=== PATIENT | female | born 1995 | race Caucasian/White ===

== ENCOUNTER 2022-01-13 04:18 | Inpatient (IN) ==
[2022-01-13] MEDS ORDERED: CARBOPROST TROMETHAMINE 250 MCG/ML AMP IM PRN (04:30)
[2022-01-13] MEDS ORDERED: TRANEXAMIC ACID 1,000 MG in SODIUM CHLORIDE 0.9% 100 ML IV PRN (04:30)
[2022-01-13] MEDS ORDERED: LACTATED RINGERS 500 ML IV PRN (04:30)
[2022-01-13] MEDS ORDERED: METHYLERGONOVINE 0.2 MG/1 ML AMP IM PRN (04:30)
[2022-01-13] MEDS ORDERED: ONDANSETRON 4 MG/2 ML VIAL IV PRN ×2 (04:30→11:24)
[2022-01-13] MEDS ORDERED: OXYTOCIN/LR 20 UNIT/1,000 ML BAG IV ONE ×2 (04:30→11:24)
[2022-01-13] MEDS ORDERED: miSOPROStoL 200 MCG TABLET RECTAL PRN (04:30)
[2022-01-13] MEDS ORDERED: MEPERIDINE 50 MG/1 ML VIAL IV PRN (04:30)
[2022-01-13] MEDS ORDERED: LACTATED RINGERS 1,000 ML IV SCH (04:30)
[2022-01-13] MEDS ORDERED: ePHEDrine 50 MG/ML VIAL IV PRN (04:32)
[2022-01-13] MEDS ORDERED: CITRIC ACID/SODIUM CITRATE 30 ML UDCUP PO ONE (04:32)
[2022-01-13] MEDS ORDERED: diphenhydrAMINE 50 MG/1 ML VIAL IV PRN ×2 (04:32)
[2022-01-13] MEDS ORDERED: LACTATED RINGERS 1,000 ML IV ONE (04:32)
[2022-01-13] MEDS ORDERED: FAMOTIDINE 20 MG/2 ML VIAL IV ONE (04:32)
[2022-01-13] MEDS ORDERED: hydrOXYzine HCL 25 MG/1 ML VIAL IM PRN (04:32)
[2022-01-13 04:49] LABS: Basophils % 0.2 % (0.0-0.8); Eosinophils % 0.1 % (0.00-10.9); Hematocrit 29.1 VOL% (35.7-47.0); Hemoglobin 8.9 GM/DL (12.0-16.0); Immature Granulocytes % 0.6 %; Immature Granulocytes Absolute 0.06 #; Lymphocytes # 2.1 10*3/uL (1.4-4.0); Lymphocytes % 21.6 % (21.3-54.2); Mean Corpuscular HGB Conc 30.6 GM/DL (32-36); Mean Platelet Volume 10.9 FL (9.6-12.0); Monocytes # 0.9 10*3/uL (0.11-0.8); Monocytes % 8.7 % (1.7-12.7); Neutrophils % 68.8 % (38.7-73.9); Platelet Count 211 T/CUMM (130-400); Red Blood Count 3.55 MC/CUMM (3.8-5.5); Red Cell Distribution Width 13.8 % (9.3-17.3); White Blood Count 9.7 T/CUMM (4-12)
[2022-01-13] MEDS ORDERED: PROMETHAZINE 25 MG/1 ML VIAL IM ONE (05:00)
[2022-01-13] MEDS ORDERED: fentaNYL 2 MCG/ROPIV 0.2% EPID 100 ML EPIDURAL SCH (05:00)
[2022-01-13 05:11] LABS: Albumin 2.7 G/DL (3.4-5.0); Bilirubin,Total 0.5 MG/DL (0.20-1.00); Calcium 9.3 MG/DL (8.5-10.1); Osmolality,Calculated 269.8 MOS/KG (273-304); Total Protein 6.6 G/DL (6.4-8.2)
[2022-01-13] MEDS ORDERED: OXYTOCIN/LR 20 UNIT/1,000 ML BAG IV SCH (05:30)
[2022-01-13 06:14] LABS: Bacteria,Urine Occasional /HPF (Few); Mucus,Urine Few /LPF (Occasional)
[2022-01-13 06:15] LABS: Bilirubin,Urine Negative (Negative); Blood, Urine Negative (Negative); Glucose,Urine (UA) Negative (Negative); Ketones,Urine 15 mg/dL (Negative); Nitrite,Urine Negative (Negative); Protein,Urine 30 mg/dL (Negative); Urine Appearance Clear (Clear); Urine Color Yellow (Yellow); Urine Specific Gravity >= 1.030 (1.001-1.035); Urine pH 6.5 (4.5-8.0)
[2022-01-13] MEDS ORDERED: miSOPROStoL 200 MCG TABLET ONE (08:49)
[2022-01-13] MEDS ORDERED: SODIUM CHLORIDE 0.9% 0 ML IV ONE (08:49)
[2022-01-13] MEDS ORDERED: TRANEXAMIC ACID 1,000 MG/10 ML VIAL ONE (08:49)
[2022-01-13] MEDS ORDERED: METHYLERGONOVINE 0.2 MG/1 ML AMP ONE (08:50)
[2022-01-13] MEDS ORDERED: CARBOPROST TROMETHAMINE 250 MCG/ML AMP IM ONE (08:50)
[2022-01-13 09:12] LABS: Cord Venous Blood HCO3 24.1 MMOL/L; Cord Venous Blood PCO2 41.4 MMHG; Cord Venous Blood PO2 35.4
[2022-01-13] MEDS ORDERED: IBUPROFEN 800 MG TABLET PO PRN (11:24)
[2022-01-13] MEDS ORDERED: ACETAMINOPHEN 325 MG TABLET PO PRN (11:24)
[2022-01-13] MEDS ORDERED: oxyCODONE/ACETAMINOPHEN 5-325 MG TABLET PO PRN ×2 (11:24)
[2022-01-13] MEDS ORDERED: HYDROCORTISONE 2.5% RECTAL CREAM 30 GM TUBE TOP PRN (11:24)
[2022-01-13] MEDS ORDERED: WITCH HAZEL PADS 100/JAR TOP PRN (11:24)
[2022-01-13] MEDS ORDERED: MEASLES/MUMPS/RUBELLA VACCINE 0.5 ML VIAL SUBCUT ONE (11:24)
[2022-01-13] MEDS ORDERED: LANOLIN 50% CREAM 0.3 OZ TUBE TOP PRN (11:24)
[2022-01-13] MEDS ORDERED: BENZOCAINE 20%/MENTHOL 0.5% SPRAY 56 GM CAN TOP PRN (11:24)
[2022-01-13] MEDS ORDERED: DIPH/TET/ACEL PERT BOOSTER VACCINE 0.5 ML VIAL IM ONE (11:24)
[2022-01-13] MEDS ORDERED: BISACODYL 10 MG SUPP RECTAL PRN (11:24)
[2022-01-13] MEDS ORDERED: RHO(D) IMMUNE GLOBULIN 300 MCG SYRINGE IM ONE (11:24)
[2022-01-13] MEDS: DOCUSATE SODIUM 100 MG CAPSULE PO SCH (21:25)
[2022-01-14 05:10] LABS: Basophils % 0.4 % (0.0-0.8); Eosinophils # 0.1 10*3/uL (0.0-0.87); Eosinophils % 1.1 % (0.00-10.9); Hematocrit 27.9 VOL% (35.7-47.0); Hemoglobin 8.1 GM/DL (12.0-16.0); Immature Granulocytes % 0.6 %; Immature Granulocytes Absolute 0.06 #; Lymphocytes # 2.2 10*3/uL (1.4-4.0); Lymphocytes % 21.5 % (21.3-54.2); Mean Platelet Volume 11.4 FL (9.6-12.0); Monocytes % 9.5 % (1.7-12.7); Neutrophils % 66.9 % (38.7-73.9); Platelet Count 205 T/CUMM (130-400); Red Blood Count 3.36 MC/CUMM (3.8-5.5); Red Cell Distribution Width 14.2 % (9.3-17.3); White Blood Count 10.4 T/CUMM (4-12)
[2022-01-14] MEDS: MULTIVITAMIN (PRENATAL) TABLET PO SCH (09:11)
[2022-01-14] MEDS: DOCUSATE SODIUM 100 MG CAPSULE PO SCH ×2 (09:11→21:35)
[2022-01-15] MEDS: DOCUSATE SODIUM 100 MG CAPSULE PO SCH (07:50)
[2022-01-15 09:11] VITALS: BP 118/63
[2022-01-15] MEDS: MULTIVITAMIN (PRENATAL) TABLET PO SCH (09:15)
== END 2022-01-15 14:14 | disposition home or self-care (01) | DRG 807 ==
LOC: N.OBOUT 04:18 → N.LD 04:19 → N.OB 11:17
PROVIDERS: ADMIT Specialist; ATTEND Specialist